=== PATIENT | female | born 1995 | race Caucasian/White ===

== ENCOUNTER 2023-07-23 19:40 | Observation (INO) | payer OTHER, SELFPAY ==
[2023-07-23] VITALS (43 sets, daily range): BP systolic 99–121; BP diastolic 53–75; PULSE 88–139; RESP 16–18; TEMP 38–38.8; O2SAT 92–100; BMI 21.5
[2023-07-23 20:09] LABS: Absolute Lymphocyte Count 0.61 X10^3/uL (0.83-4.51); Absolute Neutrophil Count 17.7 X10^3/uL (2.0-7.7); Basophil# 0.05 X10^3/uL; Basophil% 0.3 % (0-1); Eosinophil# 0.08 X10^3/uL; Eosinophils% 0.4 % (0-5); Hematocrit 30.1 % (37-47); Hemoglobin 9.8 g/dL (12.0-15.0); Lymphocyte # 0.61 X10^3/ul (0.83-4.51); Lymphocyte % 3.2 % (19-41); Mean Corp Hgb Conc 32.6 g/dL (32-36); Mean Platelet Vol. 9.7 fl (6.2-12.0); Monocyte# 0.82 X10^3/uL; Monocyte% 4.2 % (0-10); NRBC Flagged by Analyzer 0 % (0-5); Neutrophil # 17.66 X10^3/uL (2.7-7.7); Neutrophil % 91.3 % (47-70); Platelet Count 174 K/mm3 (150-450); RBC Distribution Width CV 13.4 % (11.6-14.6); Red Blood Count 3.27 M/mm3 (4.2-5.4); White Blood Count 19.3 K/mm3 (4.4-11.0)
[2023-07-23 20:23] LABS: International Normalized Ratio 1.1; Prothrombin Time (Protime)PT. 13.8 SECONDS (11.7-14.9)
[2023-07-23 20:24] LABS: Partial Thromboplast Time 23.2 Seconds (24.1-36.2)
[2023-07-23 20:33] LABS: Fibrinogen 373 mg/dl (203-444)
[2023-07-23] MEDS: TRANEXAMIC ACID 1,000 MG in 0.9% Normal Saline (100mL Bag) 100 ML 440 MG IV (20:36)
--- NOTE | 2023-07-23 20:50 | PCM.HP.OB ---
HPI - General HPI Narrative CARLA HATHAWAY, is a 28 F who presents with hemorrhage, delivered at [facility] and had a 2000cc EBL, received pitocin, methergine and cytotec there, and was noted to have an arterial bleed in the clitoral region. Due to the blood loss and the patient vital signs they called the squad and she was transported here, the printer floor covering assistant applied pressure to the bleeding the entire time. PFSH PFSH Home Medications ?Medication ?Instructions ?Recorded ?Last Taken ?Type multivitamin 1 tab PO DAILY 07/23/23 07/22/23 History Allergy/AdvReac Type Severity Reaction Status Date / Time amoxicillin Allergy Severe Swelling Verified 07/23/23 20:35 History 4 Elective abortions Hx Para 3 Spontaneous abortions 1 Hx # Term Pregnancies 3 Ectopic pregnancies Hx # Pregnancies Multiple births # of living children 3 Addt'l History: previous x 2 uncomplicated ROS Constitutional Constitutional: Reports systems reviewed and no addt'l complaints, except as documented; Denies as per HPI, change in weight, fever(s), malaise or other Eyes Eyes: Reports systems reviewed and no addt'l complaints, except as documented; Denies as per HPI, change in vision or other ENT HEENT: Reports systems reviewed and no addt'l complaints, except as documented Respiratory/Chest Respiratory/Chest: Reports systems reviewed and no addt'l complaints, except as documented Gastrointestinal Gastrointestinal: Reports systems reviewed and no addt'l complaints, except as documented and as per HPI Genitourinary Genitourinary: Reports as per HPI Musculoskeletal Musculoskeletal: Reports systems reviewed and no addt'l complaints, except as documented Neurologic Neurologic: Reports systems reviewed and no addt'l complaints, except as documented Psychiatric Psychiatric: Reports systems reviewed and no addt'l complaints, except as documented Endocrine Endocrinology: Reports systems reviewed and no addt'l complaints, except as documented Hematologic/Lymphatic Hematologic/Lymphatic: Reports systems reviewed and no addt'l complaints, except as documented Vital Signs Vital Signs Vital Signs: 07/23/23 19:51 07/23/23 19:51 07/23/23 19:51 Temperature Temperature Source Pulse Rate 108 H Respiratory Rate Blood Pressure 113/57 L 113/57 L Blood Pressure Mean BP Systolic 113 113 BP Diastolic 57 57 Blood Pressure Source Blood Pressure Position Blood Pressure Location Pulse Ox Oxygen Delivery Method 07/23/23 19:51 07/23/23 19:53 07/23/23 19:53 Temperature Temperature Source Pulse Rate 108 H 120 H 120 H Respiratory Rate Blood Pressure Blood Pressure Mean BP Systolic BP Diastolic Blood Pressure Source Blood Pressure Position Blood Pressure Location Pulse Ox Oxygen Delivery Method 07/23/23 19:53 07/23/23 19:53 07/23/23 19:56 Temperature Temperature Source Pulse Rate Respiratory Rate Blood Pressure 110/61 Blood Pressure Mean BP Systolic 110 BP Diastolic 61 Blood Pressure Source Blood Pressure Position Blood Pressure Location Pulse Ox 100 100 Oxygen Delivery Method 07/23/23 19:56 07/23/23 19:56 07/23/23 19:56 Temperature Temperature Source Pulse Rate 117 H 117 H Respiratory Rate Blood Pressure 110/61 Blood Pressure Mean BP Systolic 110 BP Diastolic 61 Blood Pressure Source Blood Pressure Position Blood Pressure Location Pulse Ox Oxygen Delivery Method 07/23/23 19:58 07/23/23 19:58 07/23/23 19:58 Temperature Temperature Source Pulse Rate 139 H 139 H Respiratory Rate Blood Pressure Blood Pressure Mean BP Systolic BP Diastolic Blood Pressure Source Blood Pressure Position Blood Pressure Location Pulse Ox 100 Oxygen Delivery Method 07/23/23 19:58 07/23/23 20:01 07/23/23 20:01 Temperature Temperature Source Pulse Rate Respiratory Rate Blood Pressure 107/69 107/69 Blood Pressure Mean BP Systolic 107 107 BP Diastolic 69 69 Blood Pressure Source Blood Pressure Position Blood Pressure Location Pulse Ox 100 Oxygen Delivery Method 07/23/23 20:01 07/23/23 20:01 07/23/23 20:03 Temperature Temperature Source Pulse Rate 120 H 120 H 109 H Respiratory Rate Blood Pressure Blood Pressure Mean BP Systolic BP Diastolic Blood Pressure Source Blood Pressure Position Blood Pressure Location Pulse Ox Oxygen Delivery Method 07/23/23 20:03 07/23/23 20:03 07/23/23 20:03 Temperature Temperature Source Pulse Rate 109 H Respiratory Rate Blood Pressure Blood Pressure Mean BP Systolic BP Diastolic Blood Pressure Source Blood Pressure Position Blood Pressure Location Pulse Ox 100 100 Oxygen Delivery Method 07/23/23 20:06 07/23/23 20:06 07/23/23 20:06 Temperature Temperature Source Pulse Rate 102 H Respiratory Rate Blood Pressure 116/59 L 116/59 L Blood Pressure Mean BP Systolic 116 116 BP Diastolic 59 59 Blood Pressure Source Blood Pressure Position Blood Pressure Location Pulse Ox Oxygen Delivery Method 07/23/23 20:06 07/23/23 20:08 07/23/23 20:08 Temperature Temperature Source Pulse Rate 102 H 111 H 111 H Respiratory Rate Blood Pressure Blood Pressure Mean BP Systolic BP Diastolic Blood Pressure Source Blood Pressure Position Blood Pressure Location Pulse Ox Oxygen Delivery Method 07/23/23 20:08 07/23/23 20:08 07/23/23 20:13 Temperature Temperature Source Pulse Rate 99 Respiratory Rate Blood Pressure Blood Pressure Mean BP Systolic BP Diastolic Blood Pressure Source Blood Pressure Position Blood Pressure Location Pulse Ox 100 100 Oxygen Delivery Method 07/23/23 20:13 07/23/23 20:13 07/23/23 20:13 Temperature Temperature Source Pulse Rate 99 Respiratory Rate Blood Pressure Blood Pressure Mean BP Systolic BP Diastolic Blood Pressure Source Blood Pressure Position Blood Pressure Location Pulse Ox 100 100 Oxygen Delivery Method 07/23/23 20:16 07/23/23 20:16 07/23/23 20:16 Temperature Temperature Source Pulse Rate 90 Respiratory Rate Blood Pressure 100/75 100/75 Blood Pressure Mean BP Systolic 100 100 BP Diastolic 75 75 Blood Pressure Source Blood Pressure Position Blood Pressure Location Pulse Ox Oxygen Delivery Method 07/23/23 20:16 07/23/23 20:18 07/23/23 20:44 Temperature 101.3 F H Temperature Source Temporal Pulse Rate 90 114 H 96 Respiratory Rate 18 Blood Pressure 114/66 Blood Pressure Mean 82 BP Systolic BP Diastolic Blood Pressure Source Monitor Blood Pressure Position Supine Blood Pressure Location Left Arm Pulse Ox 100 Oxygen Delivery Method Room Air Weight Weight: 118 lb Body Mass Index (BMI) 21.5 Physical Exam Const alert, oriented x3 and no apparent distress HEENT normocephalic Head and Scalp: atraumatic Eyes EOMs intact bilaterally and conjunctivae normal Neck full ROM, no lymphadenopathy, supple and thyroid normal General: trachea midline Lymph Lymphatic: no lymphadenopathy noted Resp normal respiratory effort, no retractions, no use of accessory muscles and clear to auscultation bilaterally Cardio Rate: tachycardic GI soft to palpation, non-distended and no masses GI Narrative: uterus fundal firm 2 below Umb. Inspection: Negative for abdominal distention Narrative: clitoral arterial bleed with tear, 2nd degre perineal tear Back/Spine no CVA tenderness Extremity normal to inspection Skin no rashes or lesions noted Neuro moves all extremities and deep tendon reflexes 2+ bilaterally Psych mental status grossly normal Labs Labs Labs: Antibody Screen Pending Hct 30.1 % (37-47) L Hgb 9.8 g/dL (12.0-15.0) L Assessment & Plan (1) hemorrhage: COMMENT: 2000 EBL per printer floor covering assistant at birthing center, upon arrival fundus firm and arterial clitoral bleeding noted- repaired. (2) Vaginal tear resulting from childbirth: COMMENT: printer floor covering assistant delivery at birthing center transfer after (3) fever: COMMENT: clinda and gent given, monitor PLAN: Plan vaginal repair done and labs ordered, monitor. give antibiotics.
--- NOTE | 2023-07-23 20:56 | PCM.OP.BLANK ---
Problems Associated Problem List Diagnoses (1) fever: (2) Vaginal tear resulting from childbirth: (3) hemorrhage: Operative Report Date of Procedure: 07/23/23 Patient's vaginal area was prepped with Betadine and clipped oral artery was noted to be bleeding. After numbing with lidocaine 2 [id number] stitches were placed to obtain hemostasis. Urethra was noted to be patent and inferior to the location of the stitches. Second-degree perineal laceration was noted which was injected with lidocaine and repaired in the usual fashion with 3-0 Rapide. Patient was also given tranexamic acid. Decision for clindamycin and gentamicin due to elevated white blood cell count and elevated temperature. Patient tolerated the procedure well Procedures Urinary/Genital [id number]: [id number] Episiotomy or vaginal repair(non-delivery) (home and admission overnight)
[2023-07-23] MEDS: DEXTROSE 5% IVPB (21:09)
[2023-07-23] MEDS: Clindamycin 900 MG/50 ML BAG 75 MG IV (21:09)
[2023-07-23] MEDS: GENTAMICIN IVPB (21:09)
[2023-07-23] MEDS: WATER IVPB (21:09)
[2023-07-23] MEDS: Acetaminophen 500 MG Tablet 1000 MG PO (22:10)
[2023-07-23] MEDS: 0.9% Saline Lock 10 ML Syringe IV ×2 (22:11→22:12)
[2023-07-24] VITALS (18 sets, daily range): BP systolic 90–104; BP diastolic 50–57; PULSE 86–106; RESP 16; TEMP 37.1–37.7; O2SAT 97–99
[2023-07-24 00:07] LABS: Absolute Lymphocyte Count 1.03 X10^3/uL (0.83-4.51); Absolute Neutrophil Count 12.6 X10^3/uL (2.0-7.7); Basophil# 0.02 X10^3/uL; Basophil% 0.1 % (0-1); Hematocrit 23.3 % (37-47); Hemoglobin 7.7 g/dL (12.0-15.0); Lymphocyte # 1.03 X10^3/ul (0.83-4.51); Lymphocyte % 7.1 % (19-41); Mean Corpuscular Hgb 30.7 pg (27.0-32.0); Mean Corpuscular Volume 92.8 fL (81-99); Mean Platelet Vol. 9.9 fl (6.2-12.0); Monocyte# 0.76 X10^3/uL; Monocyte% 5.2 % (0-10); NRBC Flagged by Analyzer 0 % (0-5); Neutrophil # 12.59 X10^3/uL (2.7-7.7); Platelet Count 141 K/mm3 (150-450); RBC Distribution Width CV 13.3 % (11.6-14.6); RBC Distribution Width SD 44.5 fl (35.1-43.9); Red Blood Count 2.51 M/mm3 (4.2-5.4); White Blood Count 14.5 K/mm3 (4.4-11.0)
[2023-07-24] MEDS: Lidocaine 1% (20 ml mdv) 20 ML Vial INFILT (00:10)
[2023-07-24] MEDS: Lactated Ringers 1,000 ML 999 ML IV (02:39)
[2023-07-24 06:42] LABS: Absolute Lymphocyte Count 1.44 X10^3/uL (0.83-4.51); Absolute Neutrophil Count 6.7 X10^3/uL (2.0-7.7); Basophil# 0.03 X10^3/uL; Basophil% 0.3 % (0-1); Eosinophil# 0.03 X10^3/uL; Eosinophils% 0.3 % (0-5); Hemoglobin 7.1 g/dL (12.0-15.0); Lymphocyte # 1.44 X10^3/ul (0.83-4.51); Lymphocyte % 16.1 % (19-41); Mean Corp Hgb Conc 33.8 g/dL (32-36); Mean Corpuscular Hgb 30.9 pg (27.0-32.0); Mean Corpuscular Volume 91.3 fL (81-99); Mean Platelet Vol. 9.6 fl (6.2-12.0); Monocyte# 0.72 X10^3/uL; NRBC Flagged by Analyzer 0 % (0-5); Platelet Count 137 K/mm3 (150-450); RBC Distribution Width CV 13.6 % (11.6-14.6); RBC Distribution Width SD 44.8 fl (35.1-43.9)
[2023-07-24] MEDS: Acetaminophen 500 MG Tablet 1000 MG PO (08:06)
[2023-07-24] MEDS: 0.9% Saline Lock 10 ML Syringe IV (08:11)
--- NOTE | 2023-07-24 09:16 | PCM.PN.OB ---
Subjective Subjective Patient doing well without complaints. Tolerating PO. Ambulating and voiding without difficulty. Feeding well. Denies chest pain, shortness of breath, calf pain/swelling, fevers, chills, lightheadedness. Objective Data Objective Data Vital Signs: Vital Signs Temp Pulse Resp BP Pulse Ox O2 Del Method 99.8 F H 96 16 99/57 L 98 Room Air 07/24/23 06:20 07/24/23 09:14 07/24/23 06:20 07/24/23 09:14 07/24/23 06:20 07/24/23 06:20 Oxygen Delivery Method Room Air Weight: 118 lb Body Mass Index (BMI) 21.5 Intake & Output: Intake and Output for Last 24 Hours 07/22/23 07/23/23 07/24/23 23:59 23:59 23:59 Intake Total 211.5 / 211.5 1000 / 1000 Balance 211.5 / 211.5 1000 / 1000 Lab / Micro Data 07/24/23 06:30 Labs: Laboratory Results - last 24 hr 07/23/23 20:00: WBC 19.3 H, RBC 3.27 L, Hgb 9.8 L, Hct 30.1 L, MCV 92.0, MCH 30.0, MCHC 32.6, RDW Std Deviation 45.0 H, RDW Coeff of Jourdan 13.4, Plt Count 174, MPV 9.7, Immature Gran % (Auto) 0.600, Neut % (Auto) 91.3 H, Lymph % (Auto) 3.2 L, [place] % (Auto) 4.2, Eos % (Auto) 0.4, Baso % (Auto) 0.3, Absolute Neuts (auto) 17.7 H, Absolute Lymphs (auto) 0.61 L, Nucleated RBC % 0, PT 13.8, INR 1.1, APTT 23.2 L, Fibrinogen 373, Blood Type B POSITIVE, Antibody Screen NEGATIVE, Crossmatch See Detail 07/24/23 00:00: WBC 14.5 H, RBC 2.51 L, Hgb 7.7 L, Hct 23.3 L, MCV 92.8, MCH 30.7, MCHC 33.0, RDW Std Deviation 44.5 H, RDW Coeff of Jourdan 13.3, Plt Count 141 L, MPV 9.9, Immature Gran % (Auto) 0.600, Neut % (Auto) 87.0 H, Lymph % (Auto) 7.1 L, [place] % (Auto) 5.2, Eos % (Auto) 0.0, Baso % (Auto) 0.1, Absolute Neuts (auto) 12.6 H, Absolute Lymphs (auto) 1.03, Nucleated RBC % 0 07/24/23 06:30: WBC 9.0, RBC 2.30 L, Hgb 7.1 L, Hct 21.0 L, MCV 91.3, MCH 30.9, MCHC 33.8, RDW Std Deviation 44.8 H, RDW Coeff of Jourdan 13.6, Plt Count 137 L, MPV 9.6, Immature Gran % (Auto) 0.300, Neut % (Auto) 75.0 H, Lymph % (Auto) 16.1 L, [place] % (Auto) 8.0, Eos % (Auto) 0.3, Baso % (Auto) 0.3, Absolute Neuts (auto) 6.7, Absolute Lymphs (auto) 1.44, Nucleated RBC % 0 Physical Exam Const alert, oriented x3 and no apparent distress Neck full ROM and no lymphadenopathy General: trachea midline Lymph Lymphatic: no lymphadenopathy noted Resp normal respiratory effort, no retractions, no use of accessory muscles and clear to auscultation bilaterally Cardio Rate: tachycardic GI soft to palpation, non-distended and no masses GI Narrative: uterus fundal firm 2 below Umb. Inspection: Negative for abdominal distention Back/Spine no CVA tenderness Extremity normal to inspection Skin no rashes or lesions noted Neuro moves all extremities and deep tendon reflexes 2+ bilaterally Psych mental status grossly normal Assessment & Plan (1) fever: COMMENT: clinda and gent given, monitor PLAN: currently stable fever. (2) Vaginal tear resulting from childbirth: COMMENT: ferris wheel operator delivery at birthing center transfer after (3) hemorrhage: COMMENT: 2000 EBL per ferris wheel operator at birthing center, upon arrival fundus firm and arterial clitoral bleeding noted- repaired. hbg dropped to 7.1, currently asymptomatic but with hypotension and mild elevated HR PLAN: Plan transfuse 2 u PRBC with repeat cbc in 2 hours post transfusion
--- NOTE | 2023-07-24 11:38 | NURSING ---
IBCLC at bedside as primary RN reports family had questions about potential use of nipple shield. When IBCLC entered room, pt. reports just had a good feeding. Family delivered outside of [facility], and is here due to maternal bleeding complications after delivery. IBCLC provided encouragement and support, and offered nipple shield resource to family that explains the indications of use, application of shield, and risks and benefits. Family reports they don't have any questions at this time. Pt. reports she believes is nursing better now, and does not desire a shield at this time. IBCLC informed family they can call out at any time if needs arise.
[2023-07-24 15:13] LABS: Absolute Lymphocyte Count 1.47 X10^3/uL (0.83-4.51); Absolute Neutrophil Count 7.2 X10^3/uL (2.0-7.7); Basophil# 0.01 X10^3/uL; Basophil% 0.1 % (0-1); Eosinophil# 0.04 X10^3/uL; Eosinophils% 0.4 % (0-5); Hematocrit 24.4 % (37-47); Hemoglobin 8.2 g/dL (12.0-15.0); Lymphocyte # 1.47 X10^3/ul (0.83-4.51); Lymphocyte % 15.5 % (19-41); Mean Corp Hgb Conc 33.6 g/dL (32-36); Mean Corpuscular Hgb 31.1 pg (27.0-32.0); Mean Corpuscular Volume 92.4 fL (81-99); Mean Platelet Vol. 9.8 fl (6.2-12.0); Monocyte# 0.72 X10^3/uL; Monocyte% 7.6 % (0-10); NRBC Flagged by Analyzer 0 % (0-5); Neutrophil # 7.23 X10^3/uL (2.7-7.7); Platelet Count 139 K/mm3 (150-450); RBC Distribution Width CV 13.7 % (11.6-14.6); RBC Distribution Width SD 45.7 fl (35.1-43.9); Red Blood Count 2.64 M/mm3 (4.2-5.4); White Blood Count 9.5 K/mm3 (4.4-11.0)
--- NOTE | 2023-07-24 15:29 | PCM.PN.OB ---
Subjective Subjective Patient doing well without complaints. Tolerating PO. Ambulating and voiding without difficulty. Feeding well. Denies chest pain, shortness of breath, calf pain/swelling, fevers, chills, lightheadedness. Objective Data Objective Data Vital Signs: Vital Signs Temp Pulse Resp BP Pulse Ox O2 Del Method 98.8 F 94 16 103/57 L 99 Room Air 07/24/23 11:39 07/24/23 12:02 07/24/23 11:39 07/24/23 12:02 07/24/23 11:39 07/24/23 11:39 Oxygen Delivery Method Room Air Weight: 118 lb Body Mass Index (BMI) 21.5 Intake & Output: Intake and Output for Last 24 Hours 07/22/23 07/23/23 07/24/23 23:59 23:59 23:59 Intake Total 211.5 / 211.5 1399 / 1399 Balance 211.5 / 211.5 1399 / 1399 Lab / Micro Data 07/24/23 14:35 Labs: Laboratory Results - last 24 hr 07/23/23 20:00: WBC 19.3 H, RBC 3.27 L, Hgb 9.8 L, Hct 30.1 L, MCV 92.0, MCH 30.0, MCHC 32.6, RDW Std Deviation 45.0 H, RDW Coeff of Jourdan 13.4, Plt Count 174, MPV 9.7, Immature Gran % (Auto) 0.600, Neut % (Auto) 91.3 H, Lymph % (Auto) 3.2 L, [place] % (Auto) 4.2, Eos % (Auto) 0.4, Baso % (Auto) 0.3, Absolute Neuts (auto) 17.7 H, Absolute Lymphs (auto) 0.61 L, Nucleated RBC % 0, PT 13.8, INR 1.1, APTT 23.2 L, Fibrinogen 373, Blood Type B POSITIVE, Antibody Screen NEGATIVE, Crossmatch See Detail 07/24/23 00:00: WBC 14.5 H, RBC 2.51 L, Hgb 7.7 L, Hct 23.3 L, MCV 92.8, MCH 30.7, MCHC 33.0, RDW Std Deviation 44.5 H, RDW Coeff of Jourdan 13.3, Plt Count 141 L, MPV 9.9, Immature Gran % (Auto) 0.600, Neut % (Auto) 87.0 H, Lymph % (Auto) 7.1 L, [place] % (Auto) 5.2, Eos % (Auto) 0.0, Baso % (Auto) 0.1, Absolute Neuts (auto) 12.6 H, Absolute Lymphs (auto) 1.03, Nucleated RBC % 0 07/24/23 06:30: WBC 9.0, RBC 2.30 L, Hgb 7.1 L, Hct 21.0 L, MCV 91.3, MCH 30.9, MCHC 33.8, RDW Std Deviation 44.8 H, RDW Coeff of Jourdan 13.6, Plt Count 137 L, MPV 9.6, Immature Gran % (Auto) 0.300, Neut % (Auto) 75.0 H, Lymph % (Auto) 16.1 L, [place] % (Auto) 8.0, Eos % (Auto) 0.3, Baso % (Auto) 0.3, Absolute Neuts (auto) 6.7, Absolute Lymphs (auto) 1.44, Nucleated RBC % 0 07/24/23 14:35: WBC 9.5, RBC 2.64 L, Hgb 8.2 L, Hct 24.4 L, MCV 92.4, MCH 31.1, MCHC 33.6, RDW Std Deviation 45.7 H, RDW Coeff of Jourdan 13.7, Plt Count 139 L, MPV 9.8, Immature Gran % (Auto) 0.400, Neut % (Auto) 76.0 H, Lymph % (Auto) 15.5 L, [place] % (Auto) 7.6, Eos % (Auto) 0.4, Baso % (Auto) 0.1, Absolute Neuts (auto) 7.2, Absolute Lymphs (auto) 1.47, Nucleated RBC % 0 Assessment & Plan (1) fever: COMMENT: clinda and gent given, monitor (2) hemorrhage: COMMENT: 2000 EBL per veneer taping machine operator at birthing center, upon arrival fundus firm and arterial clitoral bleeding noted- repaired. hbg dropped to 7.1, currently asymptomatic but with hypotension and mild elevated HR PLAN: improved CBC with stable symptoms. stable for d/c home with close follow up with [facility].
== END 2023-07-24 17:58 | disposition home or self-care (01) ==
LOC: WP 07-24 15:29 → WPOUT 07-27 11:05 → WP 07-27 11:12
PROVIDERS: Admitting Provider Registered Nurse; Visit Provider Obstetrics & Gynecology
DX: O70.1 Second degree perineal laceration during delivery (principal); O72.1 Other immediate postpartum hemorrhage; O86.4 Pyrexia of unknown origin following delivery
CPT/HCPCS: 59300; 96365; 96368; 96361; 36415; 36430; 85025; 85384; 85610; 85730; 86850; 86900; 86901; 86920; 86922; 99221; J7120; P9016; A4216; G0378